=== PATIENT | female | born 1980 | race Caucasian/White ===

== ENCOUNTER 2019-08-20 23:53 | Emergency (ER) | payer BC ==
[~2019-08-20] VITALS: Ht 167.6 cm; Wt 61.2 kg
--- OUTSIDE RECORDS SUMMARY | 2019-08-20 23:57 | XMS REPORT ---
Author Author [facility] Address Unknown Phone Unavailable Care Team Providers Care Field Appraiser Name Role Phone CHRISTZEE Unavailable Unavailable Problems This patient has no known problems. Allergies, Adverse Reactions, Alerts This patient has no known allergies or adverse reactions. Medications This patient has no known medications. Encounters Start Date/Time End Date/Time Encounter Type Admission Type Attending [facility] Facility Care Department Encounter ID 2018-10-13 08:54:37 2018-10-13 08:54:37 Outpatient [facility] [id number] 2018-09-23 09:58:50 2018-09-23 09:58:50 Outpatient [facility] [id number] 2018-09-08 10:34:50 2018-09-08 10:34:50 Outpatient [facility] [id number] 2018-08-10 15:44:02 2018-08-10 15:44:02 Outpatient [facility] [id number] 2018-07-31 07:47:16 2018-07-31 07:47:16 Outpatient [facility] [id number] 2018-07-28 10:17:46 2018-07-28 10:17:46 Outpatient [facility] [id number] 2018-07-28 08:53:48 2018-07-28 08:53:48 Outpatient [facility] [id number] Results Test Description Test Time Test Comments Text Results Atomic Results Result Comments BASIC METABOLIC PANEL 2018-01-27 23:12:00 SODIUM (BEAKER) (test whgp=283) 138 meq/L 136-145 POTASSIUM (BEAKER) (test dzgf=068) 3.8 meq/L 3.5-5.1 CHLORIDE (BEAKER) (test izij=772) 104 meq/L 98-107 CO2 (BEAKER) (test gvgq=857) 27 meq/L 22-29 BLOOD UREA NITROGEN (BEAKER) (test dgzo=833) 16 mg/dL 7-21 CREATININE (BEAKER) (test eetb=953) 0.82 mg/dL 0.57-1.25 GLUCOSE RANDOM (BEAKER) (test bzxv=725) 108 mg/dL 70-105 CALCIUM (BEAKER) (test ztuo=267) 9.3 mg/dL 8.4-10.2 EGFR (BEAKER) (test shys=2275) 78 mL/min/1.73 sq m ESTIMATED GFR IS NOT ACCURATE CREATININE CLEARANCE IN PREDICTING GLOMERULAR FILTRATION RATE. ESTIMATED GFR IS NOT APPLICABLE FOR DIALYSIS PATIENTS. CBC W/PLT COUNT & AUTO [id number] 22:52:00* Test Item Value Reference Range Comments WHITE BLOOD CELL COUNT (BEAKER) (test xxdh=192) 5.6 K/ L 3.5-10.5 RED BLOOD CELL COUNT (BEAKER) (test bsyh=012) 3.99 M/ L 3.93-5.22 HEMOGLOBIN (BEAKER) (test ibse=187) 12.4 GM/DL 11.2-15.7 HEMATOCRIT (BEAKER) (test acjb=098) 37.3 % 34.1-44.9 MEAN CORPUSCULAR VOLUME (BEAKER) (test ziin=024) 93.5 fL 79.4-94.8 MEAN CORPUSCULAR HEMOGLOBIN (BEAKER) (test fhxs=295) 31.1 pg 25.6-32.2 MEAN CORPUSCULAR HEMOGLOBIN CONC (BEAKER) (test evyn=674) 33.2 GM/DL 32.2-35.5 RED CELL DISTRIBUTION WIDTH (BEAKER) (test spko=666) 11.9 % 11.7-14.4 PLATELET COUNT (BEAKER) (test nfvd=292) 210 K/CU MM 150-450 MEAN PLATELET VOLUME (BEAKER) (test mdgg=283) 9.3 fL 9.4-12.3 NUCLEATED RED BLOOD CELLS (BEAKER) (test tqhv=069) 0 /100 WBC 0-0 NEUTROPHILS RELATIVE PERCENT (BEAKER) (test uzjs=833) 52 % LYMPHOCYTES RELATIVE PERCENT (BEAKER) (test qorv=753) 36 % MONOCYTES RELATIVE PERCENT (BEAKER) (test ieii=712) 8 % EOSINOPHILS RELATIVE PERCENT (BEAKER) (test vtzi=453) 3 % BASOPHILS RELATIVE PERCENT (BEAKER) (test yuvr=191) 1 % NEUTROPHILS ABSOLUTE COUNT (BEAKER) (test ahuq=929) 2.91 K/ L 1.56-6.13 LYMPHOCYTES ABSOLUTE COUNT (BEAKER) (test berg=370) 2.04 K/ L 1.18-3.74 MONOCYTES ABSOLUTE COUNT (BEAKER) (test vghd=082) 0.47 K/ L 0.24-0.36 EOSINOPHILS ABSOLUTE COUNT (BEAKER) (test hfan=653) 0.15 K/ L 0.04-0.36 BASOPHILS ABSOLUTE COUNT (BEAKER) (test ugjn=957) 0.03 K/ L 0.01-0.08 IMMATURE GRANULOCYTES-RELATIVE PERCENT (BEAKER) (test boja=6689) 0 % 0-1
[2019-08-21] MEDS: LORAZEPAM INJ 2 MG/ML VIAL IV STA (00:43)
--- NOTE | 2019-08-21 01:52 | NUR ---
PT STATES SHE FEELS BETTER NOW
--- NOTE | 2019-08-21 01:56 | Diagnostic Imaging Report ---
EXAMINATION: CXR 2 VIEW - HOPD INDICATION: Shortness of breath. COMPARISON: None FINDINGS: TUBES and LINES: None. LUNGS: Lungs are well inflated. Pectus defect accounts for the hazy opacity in the right lower lung. There is no evidence of pneumonia or pulmonary edema. PLEURA: No pleural effusion or pneumothorax. HEART AND MEDIASTINUM: The cardiomediastinal silhouette is unremarkable. BONES AND SOFT TISSUES: No acute osseous abnormality. There is a pectus excavatum. UPPER ABDOMEN: No free air under the diaphragm. IMPRESSION: Mildly hyperinflated lungs without evidence of pneumonia. Pectus excavatum. Signed by: Dr. Flora Salinas MD on 08/21/2019 1:53 AM
[2019-08-21] MEDS ORDERED: SODIUM CHLORIDE 0.9% 50ML 50 ML ONE (02:01)
[2019-08-21] MEDS ORDERED: IOPAMIDOL 370 MG/ML 200 ML INFUS..BTL INJ ONE (02:01)
--- NOTE | 2019-08-21 02:07 | NUR ---
PT TO CT FOR NEW ORDER OF CT CHEST
--- NOTE | 2019-08-21 02:25 | NUR ---
PT UP TO RESTROOM
--- NOTE | 2019-08-21 02:48 | NUR ---
PT UP TO RESTROOM. NO COMPLAINTS AT THIS TIME. AWAITING CT RESULTS
--- NOTE | 2019-08-21 03:00 | NUR ---
REC'D WORD FROM RADIOLOGIST THAT HIS CT READER IS DOWN AND HE HAS TO CALL IT DEPT. FOR ASSISTANCE. INFORMED PT OF LONGER WAIT TIME FOR RESULTS.
--- NOTE | 2019-08-21 04:31 | Diagnostic Imaging Report ---
EXAM: CT Chest WITH contrast- Pulmonary Embolism Protocol INDICATION: Chest tightness, query pulmonary embolism. COMPARISON: Chest radiograph 08/21/2019. TECHNIQUE: Chest was scanned utilizing a multidetector helical scanner from the lung apex through the level of the diaphragm after administration of IV contrast. Thin section reconstructions were obtained with special concentration on the pulmonary arteries. Coronal and sagittal reformations were obtained. Pulmonary embolism protocol was performed. IV CONTRAST: 100 cc of Isovue 370 RADIATION DOSE: Total DLP: 202.9 mGy*cm Dose modulation, iterative reconstruction, and/or weight based adjustment of the mA/kV was utilized to reduce the radiation dose to as low as reasonably achievable. COMPLICATIONS: None FINDINGS: LINES/ TUBES: None. PULMONARY ARTERIES: Exam is somewhat limited by contrast bolus timing. No filling defect is identified within the pulmonary arteries to the segmental level. Main pulmonary artery measures 2.1 cm in diameter. LUNGS AND AIRWAYS: The central airways are patent. Left lung is mildly hyperinflated compared to the right. Mild biapical pleural-parenchymal opacity, suggestive of remote granulomatous disease. No evidence of pneumonia or pulmonary edema. Azygos lobe. PLEURA: The pleural spaces are clear. HEART AND MEDIASTINUM: The thyroid gland is normal. No mediastinal, hilar or axillary lymphadenopathy. The heart is normal in size.. There is no pericardial effusion. . UPPER ABDOMEN: Limited contrast-enhanced views of the upper abdomen BONES: No acute osseous abnormality. Pectus excavatum. SOFT TISSUES: Unremarkable. IMPRESSION: Exam is somewhat limited by contrast bolus timing. No evidence of pulmonary embolism to the level of the segmental pulmonary arteries. Signed by: Dr. Flora Salinas MD on 08/21/2019 4:28 AM
--- NOTE | 2019-08-21 04:34 | NUR ---
CT RESULTS ARRIVED. MD INFORMED AND PT INFORMED..DC'D IVSL WITHOUT DIFF. NO REDNESS/SWELLING/BLEEDING FROM SITE. CATH INTACT.
[2019-08-21 04:49] VITALS: BP 112/74
== END 2019-08-21 04:47 | disposition home or self-care (01) ==
LOC: FSED 23:53
DX: R06.00 Dyspnea, unspecified (principal); F41.1 Generalized anxiety disorder
CPT/HCPCS: 71046; 71260; 80048; 80076; 81003; 81025; 85025; 93005; 99284; J2060; Q9967